=== PATIENT | male | born 1950 | race Caucasian/White ===

== ENCOUNTER 2022-03-06 16:27 | Observation (INO) | payer MEDICARE ==
--- NOTE | 2022-03-03 22:45 | NUR ---
BLOOD SUGAR 147. SLIDING SCALE INSULIN ADMIN PER EMAR. SANDWICH BOX PROVIDED. PT ORIENTED TO ROOM AND NURSE CALL LIGHT. DENIES QUESTIONS OR CONCERNS. CALL LIGHT IN REACH.
[~2022-03-06] VITALS: Ht 180.3 cm; Wt 87.0 kg
--- NOTE | ~2022-03-06 | OR ---
[facility] [address], [place] [address] Draft DATE OF OPERATION: 03/06/2022 SURGEON: Sandhya Salas MD PREOPERATIVE DIAGNOSES: 1. Active urinary tract infection. 2. Severe left hydroureteronephrosis secondary to obstructing 2 cm x 3 mm left distal ureteral calculus. POSTOPERATIVE DIAGNOSES: 1. Active urinary tract infection. 2. Severe left hydroureteronephrosis secondary to obstructing 2 cm x 3 mm left distal ureteral calculus. NAMES OF PROCEDURE: Diagnostic cystoscopy with insertion of an indwelling 6 x 26 cm ureteral stent, left side. ANESTHESIA: MAC. ESTIMATED BLOOD LOSS: None. COMPLICATIONS: None. SPECIMENS: None. DRAINS: A 6 x 26 cm double-J ureteral stent inserted in the left collecting system. INDICATIONS FOR PROCEDURE: Mr. Gates is a very pleasant 71-year-old gentleman with a long-standing history of nephrolithiasis, who presented to the emergency department earlier today with a 24-hour history of significant and sudden onset weakness and fevers to 103 degrees Fahrenheit. He is here visiting on vacation and lives in [place], [place]. He does have a local urologist, who manages his nephrolithiasis along with his prostate cancer, which is now in remission. Of note, he is status post open radical prostatectomy with salvage PATIENT NAME: JUNIOR GATES OPERATIVE REPORT DATE OF : 46 REPORT #: [id number] PHYSICIAN: SANDHYA SALAS MD PCP: NO PRIMARY CARE PHYSICIAN REPORT IS CONFIDENTIAL AND NOT TO BE RELEASED WITHOUT AUTHORIZATION [facility] [address], [place] [address] Draft radiation quite a few years ago. In the emergency room today, he was noted to have an active urinary tract infection and his fever was up to 103 degrees Fahrenheit. His creatinine was noted to be 1.4. Unfortunately, we do not have a known baseline for this value. The patient denies any nausea, vomiting, or gross hematuria. 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 He manages this with the penile clamp. After a discussion of the risks and benefits of the procedure, the patient agreed to undergo placement of a stent to decompress his left collecting system, which is currently severely hydronephrotic. OPERATIVE FINDINGS: On cystoscopy, there was no evidence of any suspicious masses, lesions, or stones. Bilateral ureteral orifices are in their normal anatomic location. He was noted to have no prostatic urethra, which is consistent with his history of prostate cancer, status post prostatectomy. A retrograde pyelogram was not performed today due to the presence of active infection in the urinary tract. I turned my attention to the left ureteral orifice. A 0.035 Sensor wire was inserted into the left ureteral orifice and up into the left collecting system. I did initially meet a little bit of resistance at the level of where I believe the large stone is present. However, I was able to work the wire around the stone and make it into the significantly dilated left renal pelvis. Over the wire, I passed a 6 x 26 cm double-J ureteral stent into the left collecting system under fluoroscopic guidance. The stent passed easily and without incident. I pulled the wire a little bit to be sure the coil was going to end up in the proper position. I then pulled the wire completely leaving the proximal coil within the left renal pelvis. A distal coil was noted on cystoscopy. The patient's bladder was then drained and the cystoscope was removed. Again, fluoroscopy confirmed adequate placement of the stent. Once the patient's bladder was drained. His penile clamp was then placed back on the penis to prevent incontinence in the PACU. The patient tolerated the procedure well without any complications. He will now be transferred to the postanesthesia care unit in stable condition. DISPOSITION: The patient will be admitted to the hospital service overnight for close monitoring of his vitals including his pressures and his fevers. He has been given 2 g of IV Rocephin approximately 2 hours ago and we are awaiting his urine culture results. The plan is for him to be discharged to home tomorrow once he is vitally stable and he will begin oral antibiotic treatment until he can be seen again by his local urologist. His local urologist has been notified and plans to proceed with definitive stone extraction surgery as soon as the infection is cleared. PATIENT NAME: JUNIOR GATES OPERATIVE REPORT DATE OF : 46 REPORT #: [id number] PHYSICIAN: SANDHYA SALAS MD PCP: NO PRIMARY CARE PHYSICIAN REPORT IS CONFIDENTIAL AND NOT TO BE RELEASED WITHOUT AUTHORIZATION [facility] [address] [place] [id number] [place] MD NGUYEN Peacock/DIANDRA /[id number] Copies: ~ PATIENT NAME: JUNIOR GATES OPERATIVE REPORT DATE OF : 46 REPORT #: [id number] PHYSICIAN: SANDHYA SALAS MD PCP: NO PRIMARY CARE PHYSICIAN REPORT IS CONFIDENTIAL AND NOT TO BE RELEASED WITHOUT AUTHORIZATION
[2022-03-06] MEDS ORDERED: METFORMIN HCL500 MG PO (16:47)
[2022-03-06] MEDS ORDERED: ALLOPURINOL100 MG PO (16:48)
[2022-03-06] MEDS ORDERED: ATENOLOL25 MG PO (16:49)
[2022-03-06] MEDS ORDERED: GLIPIZIDE5 MG PO (16:49)
--- OUTSIDE RECORDS SUMMARY | 2022-03-06 18:58 | XMS ---
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 Radha has no Care Guidelines for this patient. Janie VISIT COUNT (12 MO.) 3 Richard Alvarez CARLOS Jackson TOTAL 4 NOTE: Visits indicate total known visits. ED/C VISIT TRACKING (12 MO.) 03/06/2022 16:28 CARLOS Kapoor [place] TYPE: Emergency COMPLAINT: - WEAKNESS 12/23/2021 00:42 Richard Limon [place] TYPE: Emergency DIAGNOSES: - RT SIDE PAIN - Calculus of kidney 10/09/2021 20:23 [facility] [place] [facility] DIAGNOSES: - Hydronephrosis with renal and ureteral calculous obstruction - Acute cystitis with hematuria - fever 04/19/2021 19:00 [facility] [place] [facility] DIAGNOSES: - Viral infection, unspecified - covid like INPATIENT VISIT TRACKING (12 MO.) 12/23/2021 00:42 Leganthony Limon [place] TYPE: Urology DIAGNOSES: - Calculus of kidney [email or web address]
--- NOTE | 2022-03-06 21:56 | NUR ---
03/06/222155 MaurizioSusana M 2140: PT ARRIVES TO PACU FOR RECOVERY VIA BED. NON AROUSABLE ON ARRIVAL, HOLDS OWN AIRWAY. VSS, RESP EVEN AND UNLABORED ON 6L VIA FACEMASK. NO DRAINAGE NOTED FROM URETHRA. SR 2144: PT REMAINS NON AROUSABLE, VSS, RESP EVEN AND UNLABORED. CONTS TO HOLD OWN AIRWAY ON 6L VIA FACEMASK. 2145: PT WAKES TO VERBAL STIM, ANSWERS QUESTIONS APPROPRIATELY. DENIES PAIN AND NAUSEA. ORIENTED TO PLACE AND TIME. QUESTIONS ANSWERED. FACEMASK REMOVED AND PT TRIALLED ON RA. O2 SAT REMAINS >98% 2149: VS REMAIN STABLE, MAINTAINS O2 SAT >98% ON RA. CONTS TO DENY PAIN AND NAUSEA. BEDSIDE BLOOD GLUCOSE 148. MD JOSUE AT THE BEDSIDE TO DISCUSS PROCEDURE WITH PT. PT ASKS APPROPRIATE QUESTIONS
--- NOTE | 2022-03-06 22:25 | NUR ---
PT TO FLOOR WITH PACU NURSE. REPORT RECEIVED. PT ALERT AND ORIENTED. DENIES PAIN OR NAUSEA. ORDERS RECEIVED. VS WNL. SCD'S IN PLACE. MRI TECH IN ROOM FOR ADMISSION.
--- NOTE | 2022-03-06 23:10 | NUR ---
ADMISSION ASSESSMENT COMPLETE. PT ALERT AND ORIENTED. DENIES PAIN OR NAUSEA. AT BEDSIDE TO VOID 425 ML RED TINGED URINE. SEKOU PAD PROVIDED FOR OCCASIONAL STRESS INCONTINENCE. BACK TO BED. POST OP VS WNL. NO FURTHER NEEDS. CALL LIGHT IN REACH.
--- NOTE | 2022-03-07 00:15 | NUR ---
PT RESTING WITH EYES CLOSED. AWAKENS EASILY. POST OP VS WNL. PT DENIES PAIN OR NAUESA. PT VOID 325 ML PINK COLORED URINE. DENIES PAIN WITH URINATION. URINE STRAINED, SOME SEDIMENT BUT NO STONES NOTED. PT DENIES NEEDS. CALL LIGHT IN REACH.
--- NOTE | 2022-03-07 01:14 | NUR ---
POST OP VS COMPLETE. PT DENIES PAIN OR NAUSEA. PT VOID 150 ML YELLOW URINE. URINE STRAINED, NO STONES NOTED. NO NEEDS AT THIS TIME. CALL LIGHT IN REACH.
--- NOTE | 2022-03-07 02:20 | NUR ---
BED ALARM SOUNDING. PT ON THE SIDE OF THE BED. UP TO BR WITH SBA TO VOID. PT INCONTINENT WELL. GAIT WEAK AND UNSTEADY. INCONTINENT SUPPLIES PROVIDED. GOWN AND CHUCKS CHANGED. BACK TO BED. PT SHAKING. WARM BLANKET PROVIDED. AFEBRILE. OFFERED TO CHECK BLOOD SUGAR, PT STATES "THIS ISN'T BLOOD SUGAR." WITH WARM BLANKET PT REPORTS RESTING COMFORTABLY. DENIES FURTHER NEEDS. CALL LIGHT IN REACH. BED ALARM FOR SAFETY.
--- NOTE | 2022-03-07 02:59 | NUR ---
CALL LIGHT ANSWERED. PT UP TO BR WITH SBA TO VOID AN UNMEASURED AMOUNT. GAIT WEAK AND UNSTEADY. BACK TO BED. PT SHIVERING. TEMP 1OO.1 ORAL. PRN TYLENOL ADMIN PER EMAR. BED ALARM FOR SAFETY.
--- NOTE | 2022-03-07 03:30 | NUR ---
BED ALARM SOUNDING. PT AT SIDE OF BED WITH SBA TO VOID 325 LIGHT PINK URINE. PT REMAINS UNSTEADY. BACK TO BED. BED ALARM FOR SAFETY.
--- NOTE | 2022-03-07 04:35 | NUR ---
PT. REQUESTED BR ASSISTANCE. PT. SBA TO BATHROOM. GOWN CHANGED. BED ALARM SET. CALL LIGHT LEFT WITHIN REACH. FRESH WATER PROVIDED. NO OTHER IMMEDIATE NEEDS AT THIS TIME.
--- NOTE | 2022-03-07 05:30 | NUR ---
PT. VITALS AND I/OS CHARTED. ROOM TIDIED. TRASH EMPTIED. FRESH WATER PROVIDED. CALL LIGHT LEFT WITHIN REACH. BED ALARM SET. NO OTHER IMMEDIATE NEEDS AT THIS TIME.
--- NOTE | 2022-03-07 07:12 | EKG ---
[facility] [address] [facility] [place] [address] Signed Sinus tachycardia Left axis deviation Pulmonary disease pattern Abnormal ECG No previous ECGs available Confirmed by MILADYS MATHEWS MD ([id number]) on 03/07/2022 7:12:35 AM Electronically Signed By: MILADYS MATHEWS MD 03/07/22711 PATIENT NAME: JUNIOR PATTERSON Electrocardiogram DATE OF : 46 PHYSICIAN: MILADYS MATHEWS MD REPORT #: [id number] REPORT IS CONFIDENTIAL AND NOT TO BE RELEASED WITHOUT AUTHORIZATION
--- NOTE | 2022-03-07 07:42 | NUR ---
THIS RN TO ROOM TO ASSIST WITH MORNING CARES. PT UP TO RESTROOM WITH STAND BY ASSIST. PT VOIDS 250ML CLOUDY URINE. AND PERFORMS SELF SEKOU CARE. URINE FILTERED, NO STONES NOTED. STAND BY ASSIST UP TO CHAIR. WARM WASH CLOTH PROVIDED. PT ANTICIPATING BREAKFAST. NO ADDITIONAL REQUESTS OR COMPLAINTS. CALL LIGHT WITHIN REACH.
[2022-03-07] MEDS ORDERED: ALLOPURINOL300 MG PO (07:46)
[2022-03-07] MEDS ORDERED: TESTOSTERO200 MG/1 M IM (07:57)
--- NOTE | 2022-03-07 08:00 | NUR ---
Spoke with pt and he plans on dc today. He has concerns how to get back to his car as he came in by EMS. He denies needs to go home. States he is very active and walks 4 miles per day. Plans on dc to home when he is medically cleared. I will call the [employer] to check where his car is.
--- NOTE | 2022-03-07 09:27 | NUR ---
Called [facility] and spoke with dispatch. Office did not make a report, they are unsure if the car is at [place] where is was picked. Office Layne, will be back at 2 pm. She states she will check with other officers if the car is still there.
--- NOTE | 2022-03-07 09:29 | NUR ---
Received a call from [place], called and believes the car is at [place] and pt has the keys. Will check with MD to see if pt is discharging today. Officer had offered to drive pt back to car, but he will not be on duty until 2 pm. Pt has a 4-5 hour home after picking up his car. If he is dcd this am .
--- NOTE | 2022-03-07 09:34 | NUR ---
PATIENT UP TO BATHROOM AND BACK TO CHAIR, IND. VITALS DONE BY RN EARLIER. I&O'S DONE. AM CARE SUPPLIES PROVIDED. CALL LIGHT IN REACH. NO FURTHER NEEDS AT THIS TIME.
[2022-03-07] MEDS ORDERED: CEFPODOXIME PR200 MG PO (09:58)
--- NOTE | 2022-03-07 10:42 | NUR ---
CALLED DR SALAS REGARDING PT DISCHARGE. SHE STATED SHE DID NOT NEED TO SEE HIM AND HE WOULD BE FOLLOWING UP WITH HIS UROLOGIST. THAT SHE WAS FINE WITH DR MATHEWS DISCHARGING HIM HOME.
--- NOTE | 2022-03-07 13:10 | NUR ---
PT ALERT, ORIENTED AND SITTNG IN CHAIR. PT IS IMPROVED, AND STATED HE WAS PLEASED WITH CARE HE HAS RECEIVED HERE AT [facility]. PT HOPES TO DC LATER TODAY. GAVE ENCURAGEMENT AND BLESSING.
== END 2022-03-07 10:50 | disposition home or self-care (01) ==
LOC: ED 16:27 → MS 20:14 → DS 20:14 → MS 20:15
PROVIDERS: Urology; ADMIT Internal Medicine; ATTEND Internal Medicine
PROC: 0T9780Z Drainage of Left Ureter with Drainage Device, Via Natural or Artificial Opening Endoscopic (ICD-10-PCS; principal; 2022-03-06 20:42)
DX: N13.6 Pyonephrosis (principal); E11.9 Type 2 diabetes mellitus without complications; I10 Essential (primary) hypertension; N39.0 Urinary tract infection, site not specified; Z79.84 Long term (current) use of oral hypoglycemic drugs; Z20.822 Contact with and (suspected) exposure to COVID-19
CPT/HCPCS: 36415; 71045; 74176; 74430; 80048; 80053; 81001; 83605; 85025; 87502; 93005; 93010; A9270; C1769; C2617; C9803; J0696; J1815; J2001; J2704; J3010; Q9958; U0003